=== PATIENT | female | born 1950 | race Hispanic/Latino ===

== ENCOUNTER 2018-09-11 09:24 | Day surgery (SDC) | payer MEDICARE ==
[~2018-09-11 09:24] MED LIST: NACL 0.9% 1000 ML 1,000 ML IV SCH; VANCOMYCIN/NS 1 GM/250 ML 1 GM/250 ML BAG IV NR
[2018-09-11 10:38] LABS: Basophils # (Auto) 0.1 K/mm3 (0.0-0.1); Basophils % (Auto) 0.7 % (0.0-1.8); Eosinophils # (Auto) 0.1 K/mm3 (0.0-0.4); Eosinophils % (Auto) 1.2 % (0.0-4.3); Hematocrit 41.8 % (30.3-42.9); Hemoglobin 14.5 gm/dl (10.1-14.3); Lymphocytes # (Auto) 1.1 K/mm3 (1.2-5.4); Mean Corpuscular HGB Conc 35 % (30-34); Mean Corpuscular Volume 99 fl (79-97); Monocytes # (Auto) 0.5 K/mm3 (0.0-0.8); Monocytes % (Auto) 5.9 % (0.0-7.3); Red Blood Count 4.22 M/mm3 (3.65-5.03); Red Cell Distribution Width 14.8 % (13.2-15.2)
[2018-09-11 10:50] LABS: BUN/Creatinine Ratio 19; Blood Urea Nitrogen 17 mg/dL (7-17); Calcium 9.3 mg/dL (8.4-10.2); Hemolysis Index 59
[2018-09-11 10:51] LABS: Platelet Count 79 K/mm3 (140-440)
[2018-09-11 11:45] LABS: INR 0.84 (0.87-1.13)
[2018-09-11 11:46] LABS: Partial Thromboplastin Time 22.4 Sec. (24.2-36.6)
[2018-09-11] MEDS ORDERED: HEPARIN 10,000 UNITS/10 ML ONE (14:35)
[2018-09-11] MEDS ORDERED: VERSED ONE ×2 (14:35→15:16)
[2018-09-11] MEDS ORDERED: SUBLIMAZE ONE (14:35)
[2018-09-11] MEDS ORDERED: HEPARIN/NS 5000 UNIT/500ML(CATH LAB) 500 ML IR ONE (14:35)
[2018-09-11] MEDS ORDERED: XYLOCAINE 2% INFILTRATI ONE ×2 (14:36→14:59)
[2018-09-11] MEDS ORDERED: TORADOL ONE (14:44)
[2018-09-11] MEDS ORDERED: LEVAQUIN 500MG/100ML 500 MG/100 ML BAG IV ONE (14:45)
[2018-09-11] MEDS ORDERED: NACL 0.9% 500 ML 0 ML ONE (14:46)
--- NOTE | 2018-09-11 16:20 | Short Stay Summary ---
Short Stay Documentation Date of service: 09/11/18 - History Principal diagnosis: multiple myeloma Past Medical History: cancer Past Surgical History: Other (chest ports) Social history: no significant social history - Allergies and Medications Current Medications: Allergies Penicillins Allergy (Verified 11/14/14 16:53) Unknown Home Medications Medication Instructions Recorded Confirmed Last Taken Type Amitriptyline [Elavil] 37.5 mg PO QHS 11/14/14 09/11/18 09/10/18 History 37.5mg Aspirin [Aspirin BABY CHEW TAB] 81 mg PO DAILY 11/14/14 09/11/18 09/10/18 History 81mg Levothyroxine Sodium [Synthroid] 88 mcg PO DAILY 11/14/14 09/11/18 09/10/18 History 88mcg Omeprazole [PriLOSEC] 20 mg PO QDAY 11/14/14 09/11/18 09/10/18 History 20mg ALBUTEROL Inhaler (OR & NICU) 2 puff IH QID PRN 09/11/18 09/11/18 09/10/18 History [Proair] 2 Dexamethasone [Decadron] 4 mg PO DAILY 09/11/18 09/11/18 09/10/18 History 4mg Humalog 100 UNITS/ML Kwikpen 20 units SC TID 09/11/18 09/11/18 09/10/18 History 20 Iron,Carbonyl/Ascorbic Acid 1 tab PO DAILY 09/11/18 09/11/18 09/10/18 History [Vitron-C Tablet] 1 Losartan [Cozaar] 50 mg PO DAILY 09/11/18 09/11/18 09/11/18 History 50mg Os-Aditya 500-Vit D3 600 Caplet 1 tab PO BID 09/11/18 09/11/18 09/10/18 History 1 Active Medications Sodium Chloride (Nacl 0.9% 1000 Ml) 1,000 mls @ 42 mls/hr IV DIRECT JD Last Admin: 09/11/18 10:54 Dose: 42 mls/hr Documented by: Vancomycin HCl (Vancomycin/Ns 1 Gm/250 Ml) 1 gm in 250 mls @ 166.667 mls/hr IV PREOP NR; Protocol Stop: 09/11/18 23:00 Last Admin: 09/11/18 11:33 Dose: 166.667 mls/hr Documented by: - Physical exam General appearance: no acute distress Integumentary: no rash, no growths Lungs: Normal air movement Breasts: deferred Heart: Regular rate Gastrointestinal: normal Female Genitourinary: deferred Rectal Exam: deferred Extremities: no ischemia Neurological: Normal gait, Normal speech - Brief post op/procedure progress note Date of procedure: 09/11/18 Pre-op diagnosis: multiple myeloma Post-op diagnosis: same Procedure: left arm port placement Anesthesia: local Surgeon: CONSTANTIN BORRERO Estimated blood loss: minimal Condition: stable - Disposition Condition at discharge: Good Disposition: DC-01 TO HOME OR SELFCARE Short Stay Discharge Plan Activity: advance as tolerated Weight Bearing Status: Weight Bear as Tolerated Diet: regular Wound: keep clean and dry, per your surgeon's advice Follow up with: PARVIZ AGUIRRE [Other] - 7 Days
--- NOTE | 2018-09-11 16:24 | Operative Report ---
Operative Report Operative Report: Exam: Ultrasound and fluoroscopic guided placement of port Clinical indication: Multiple myeloma, port for chemotherapy Date: 09/11/2018 Procedure: Following an explanation of the risks, benefits and alternatives; written informed consent was obtained. The patient was brought to the angiographic suite and placed in supine position on the examination table. Initial ultrasound evaluation of her arm demonstrated a patent left basilic vein. The patient's left arm was prepped and draped in the usual sterile fashion. 1% lidocaine was used for anesthesia. Under ultrasound guidance, the left basilic vein was cannulated with a 7 cm 21- gauge needle. A 0.018 guidewire was advanced and really. The needle was removed any micro-sheath placed. The mandrel wire was exchanged for a long 0.018 guidewire which was advanced into the IVC to document intravenous positioning. An appropriate port pocket was created along the medial aspect of the left upper arm. A Bard low-profile PowerPort was connected to the catheter tubing and inserted into the port pocket. The port was sutured down using 2-0 Ethilon suture. The catheter tubing was then tunneled antegrade to the venotomy site. Following serial dilation over the guidewire under fluoroscopy, an 8 Bah[place]ian sheath was placed over the guidewire under fluoroscopy. The trocar and guidewire were removed and the port tubing inserted to the peel-away sheath. Port tubing was positioned with the tip in the proximal right atrium. The port flushed and aspirated easily and was unlocked with appropriate lives of heparin. The port pocket was closed using 3-0 Vicryl and 4-0 Vicryl subcuticular and subcutaneous sutures. Dermabond and Steri-Strips were then applied. Dermabond and Steri-Strips were applied to the venotomy site. The patient tolerated the procedure well. There were no immediate post procedure complications. Conscious sedation was performed of the guidance of radiologic nursing. Continuous cardiopulmonary monitoring was utilized. Impression: Ultrasound and fluoroscopic guided placement of port via the left basilic vein.
[2018-09-11 16:49] VITALS: BP 115/56
== END 2018-09-11 16:57 | disposition home or self-care (01) ==
LOC: CATHLABREC 09:24 → CR 09:24 → CATHLABREC 16:57
PROVIDERS: ATTEND Radiology Diagnostic Radiology
DX: C90.00 Multiple myeloma not having achieved remission (principal); K21.9 Gastro-esophageal reflux disease without esophagitis; E03.9 Hypothyroidism, unspecified; F32.9 Major depressive disorder, single episode, unspecified; F41.9 Anxiety disorder, unspecified; Z88.0 Allergy status to penicillin; Z79.82 Long term (current) use of aspirin; Z98.51 Tubal ligation status; Z87.440 Personal history of urinary (tract) infections; Z79.899 Other long term (current) drug therapy; Z98.49 Cataract extraction status, unspecified eye; Z98.890 Other specified postprocedural states; Z90.49 Acquired absence of other specified parts of digestive tract; Z79.01 Long term (current) use of anticoagulants
CPT/HCPCS: 36415; 36561; 80048; 85025; 85610; 85730; 96365; 99156; 99157; J1644; J1885; J1956; J2250; J3370; J7030; J3010; J7040

== ENCOUNTER 2018-10-13 07:56 | Day surgery (SDC) | payer MEDICARE ==
[~2018-10-13 07:56] MED LIST changes: -NACL 0.9% 1000 ML 1,000 ML IV SCH
[2018-10-13 10:18] LABS: Hematocrit 40.5 % (30.3-42.9); Hemoglobin 13.8 gm/dl (10.1-14.3); Mean Corpuscular HGB Conc 34 % (30-34); Mean Corpuscular Volume 102 fl (79-97); Red Blood Count 3.98 M/mm3 (3.65-5.03); Red Cell Distribution Width 15.5 % (13.2-15.2)
[2018-10-13 10:20] LABS: Platelet Count 89 K/mm3 (140-440)
[2018-10-13 10:29] LABS: INR 0.9 (0.87-1.13); Partial Thromboplastin Time 21.3 Sec. (24.2-36.6)
[2018-10-13 10:30] LABS: BUN/Creatinine Ratio 14; Blood Urea Nitrogen 13 mg/dL (7-17); Calcium 9.2 mg/dL (8.4-10.2); Hemolysis Index 14
[2018-10-13] MEDS ORDERED: DIPRIVAN 10 MG/ML IV ONE ×2 (10:36→11:58)
[2018-10-13] MEDS ORDERED: SUBLIMAZE ONE (10:36)
[2018-10-13] MEDS ORDERED: VERSED ONE (10:37)
[2018-10-13] MEDS ORDERED: XYLOCAINE MPF 2% ONE (10:39)
[2018-10-13] MEDS ORDERED: VANCOMYCIN 1,750 MG in NACL 0.9% 500 ML 500 ML IV ONE (11:00)
[2018-10-13] MEDS ORDERED: HEPARIN 10,000 UNITS/10 ML ONE (11:25)
[2018-10-13] MEDS ORDERED: HEPARIN/NS 5000 UNIT/500ML(CATH LAB) 500 ML IR ONE (11:25)
[2018-10-13] MEDS ORDERED: XYLOCAINE 1%/ EPI 1:100,000 INFILTRATI ONE (11:26)
[2018-10-13] MEDS: NACL 0.9% 1000 ML 1,000 ML IV SCH ×2 (11:26→12:30)
[2018-10-13] MEDS: XYLOCAINE 1%/ EPI 1:100,000 INFILTRATI ONE ×3 (13:24→13:42)
--- NOTE | 2018-10-13 14:45 | Short Stay Summary ---
Short Stay Documentation Date of service: 10/13/18 Narrative H&P: Port malfunction with multiple myeloma - History Principal diagnosis: Port malfunction with multiple myeloma H&P: obtained from office - Allergies and Medications Current Medications: Allergies Penicillins Allergy (Verified 11/14/14 16:53) Unknown LATEEX TAPE Allergy (Uncoded 10/13/18 07:57) REDNESS TO SKIN,SKIN PEELS Home Medications Medication Instructions Recorded Confirmed Last Taken Type Amitriptyline [Elavil] 37.5 mg PO QHS 11/14/14 10/13/18 10/12/18 History Aspirin [Aspirin BABY CHEW TAB] 81 mg PO DAILY 11/14/14 10/13/18 10/09/18 History Levothyroxine Sodium [Synthroid] 100 mcg PO DAILY 11/14/14 10/13/18 10/12/18 History Omeprazole [PriLOSEC] 20 mg PO QDAY 11/14/14 10/13/18 10/12/18 History ALBUTEROL Inhaler (OR & NICU) 2 puff IH QID PRN 09/11/18 10/13/18 09/10/18 History [Proair] 2 HYDROcodone/APAP 10-325 [[place]lett 1 each PO Q6HR PRN #40 tablet 09/11/18 10/13/18 Unknown Rx 10/325] Humalog 100 UNITS/ML Kwikpen 10 units SC TID 09/11/18 10/13/18 10/12/18 History Iron,Carbonyl/Ascorbic Acid 1 tab PO DAILY 09/11/18 10/13/18 10/12/18 History [Vitron-C Tablet] Losartan [Cozaar] 50 mg PO DAILY 09/11/18 10/13/18 10/12/18 History Os-Aditya 500-Vit D3 600 Caplet 1 tab PO BID 09/11/18 10/13/18 10/12/18 History Active Medications Sodium Chloride (Nacl 0.9% 1000 Ml) 1,000 mls @ 42 mls/hr IV DIRECT JD Last Admin: 10/13/18 12:30 Dose: 42 mls/hr Documented by: - Physical exam General appearance: no acute distress Lungs: Normal air movement Gastrointestinal: normal Extremities: abnormal (partial dehissence of the left arm port) - Brief post op/procedure progress note Date of procedure: 10/13/18 Pre-op diagnosis: Multiple myeloma, port malfunction Post-op diagnosis: same Procedure: Port placement and port removal Anesthesia: MAC Surgeon: CONSTANTIN IVY Estimated blood loss: minimal Condition: stable - Hospital course Hospital course: Ready for discharge, tolerated procedure well. - Disposition Condition at discharge: Stable Disposition: DC-01 TO HOME OR SELFCARE - Discharge Diagnoses (1) Multiple myeloma Status: Acute Short Stay Discharge Plan Activity: advance as tolerated Weight Bearing Status: Weight Bear as Tolerated Diet: regular Wound: keep clean and dry (discussed in depth instructions with patient and ; no shower 7 days ; remove dressing tomorrow ; steristrip and glue will fall off on their own) Follow up with: ANNA AYALA MD [Other] - 7 Days
--- NOTE | 2018-10-13 14:47 | Operative Report ---
Operative Report Operative Report: EXAM: 1. Ultrasound-guided puncture of the right internal jugular vein 2. Fluoroscopic-guided placement of a right internal jugular tunneled 8 Fr BARD port placement. 3. Fluoroscopic guided removal of a left arm port DATE: 10/13/18 INDICATION: Multiple myeloma with left arm port malfunction MEDICATIONS: Please see nursing report for full details. ANESTHESIA: MAC DEVICES: 8 Fr single lumen power port CONTRAST: None SURGEON: Alan Loco MD PROCEDURE: The risks, benefits, and alternatives were discussed and informed consent was obtained. The patient was transported to the angiography suite in satisfactory/stable condition and was transported onto the angiography table. The patient's right internal jugular vein was assessed with ultrasound and determined to be patent prior to procedure. The patient was prepped and draped in a sterile fashion. Left arm was prepped and draped in a sterile fashion as well. The puncture site was anesthetized. Under sonographic guidance, the right internal jugular vein was punctured with a 21-gauge micropuncture needle and a 0.018 inch wire was advanced into the inferior vena cava. The micropuncture needle was exchanged for a transitional dilator and the wire was retracted into the right atrium to damari intravascular distance. The wire and inner dilator were removed. 0.035 inch wire was advanced through the transitional dilator into the inferior vena cava. A suitable port pocket site was identified on the patient's chest inferior and lateral to the venotomy. The site was anesthetized with local anesthetic at the pocket and the track was anesthetized. Incision was made with a 15 blade extending approximately 2 cm. The port was created with the use of a hemostat and hemostasis was achieved with manual compression and with the use of a hand- held Bovie-pen device. The port pocket was irrigated. The port was tested and the port was attached to the tubing. The port was the retested and attached to the tunneling device. The port was placed in the pocket and then tunneled to the venotomy. The port tubing was cut to predetermined length. Over the 0.035 inch wire, serial dilatation was performed with ultimate placement of a peel-away sheath. The catheter was advanced through the peel- away sheath after the wire was removed and positioned centrally under fluoroscopic guidance. The peel-away sheath was removed. The pocket was closed in 2 layers with multiple deep interrupted 3-0 Vicryl sutures with a running subcuticular 4-0 Vicryl suture. The venotomy was closed with a single deep interrupted 4-0 Vicryl suture. Dermabond was applied to both sites and Steri-Strips were then applied. The port was the catheter was charged with heparin 200 units per mL of space. At this point, attention was turned towards the left arm port. The port site was then anesthetized with local anesthetic. 15 blade was used to make a 2 centimeter incision along the existing port healed incision. Curved hemostats were used to slowly separate the site and expose the port. As this was done, hemostasis was achieved with the use of compression and Bovie pen. The port tubing was expose the tubing was clamped. The tubing was then freed and completely extracted. Pressure was held at the prior venotomy sites after tubing removal until hemostasis was achieved. Securing sutures were cut and the port was then removed intact. The area was then evaluated and washed with sterile saline. Hemostasis was achieved with m anual compression. The site was then closed in 2 layers with interrupted 3-0 Vicryl sutures and a running 4-0 Vicryl subcuticular suture. Dermabond was applied. Steri-Strips were applied. Sterile dressing was then applied. The patient tolerated the procedure well. There were no immediate postprocedural complications. The patient was transferred from the angiography suite back to the recovery area. FINDINGS: 1. Excellent flow was obtained through the newly placed right chest port. 2. The catheter tip is in the right atrium. 3. Successful intact removal of the left arm port. No purulence in the pocket. IMPRESSION: 1. Successful ultrasound and fluoroscopically guided placement of a right internal jugular tunneled 8 Syriac Bard signal lumen power port. 2. Successful fluoroscopic guided removal of a left basilic vein arm port.
[2018-10-13] MEDS ORDERED: REGLAN IV ONE (14:53)
[2018-10-13 16:20] VITALS: BP 135/65
== END 2018-10-13 17:02 | disposition home or self-care (01) ==
LOC: CATHLABREC 07:56
PROVIDERS: ATTEND Radiology Diagnostic Radiology
DX: C90.00 Multiple myeloma not having achieved remission (principal); T82.898A Other specified complication of vascular prosthetic devices, implants and grafts, initial encounter; E78.00 Pure hypercholesterolemia, unspecified; K21.9 Gastro-esophageal reflux disease without esophagitis; I10 Essential (primary) hypertension; E03.9 Hypothyroidism, unspecified; F32.9 Major depressive disorder, single episode, unspecified; F41.9 Anxiety disorder, unspecified; Z88.0 Allergy status to penicillin; Z88.8 Allergy status to other drugs, medicaments and biological substances; Z79.899 Other long term (current) drug therapy; Z79.82 Long term (current) use of aspirin; Z91.040 Latex allergy status; Z98.49 Cataract extraction status, unspecified eye; Z98.890 Other specified postprocedural states; Z90.49 Acquired absence of other specified parts of digestive tract; Z98.51 Tubal ligation status; Y83.8 Other surgical procedures as the cause of abnormal reaction of the patient, or of later complication, without mention of misadventure at the time of the procedure; Y92.89 Other specified places as the place of occurrence of the external cause
CPT/HCPCS: 36415; 36561; 36590; 80048; 82962; 85027; 85610; 85730; 96374; C1788; J1644; J2250; J2704; J2765; J3010; J3370; J7030; J7040